=== PATIENT | female | born 1970 | race African-American/Black ===

== ENCOUNTER 2019-01-09 00:53 | Emergency (ER) | payer MEDICAID ==
[~2019-01-09] VITALS: Ht 152.4 cm; Wt 99.8 kg
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
[2019-01-09 01:00] VITALS: BP 136/86
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
--- NOTE | 2019-01-09 01:24 | NUR ---
ED Nurse Note: Pt down to CT and xray
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
--- NOTE | 2019-01-09 02:09 | NUR ---
ED Nurse Note: pt returned, currently in bed. VSS
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
[2019-01-09] MEDS ORDERED: IBUPROFEN600 MG ORAL (03:02)
[2019-01-09] MEDS ORDERED: CYCLOBENZAPRINE10 MG ORAL (03:02)
[2019-01-09 03:21] VITALS: BP 131/88
--- NOTE | 2019-01-09 03:21 | NUR ---
ER DISCHARGE NOTE: Patient is cleared to be discharged per ERMD, pt is aox4, on room air, with stable vital signs. pt was given dc and prescription instructions, pt was able to verbalize understanding, pt id band removed without complications. pt is able to ambulate using crutches. pt took all belongings.
--- NOTE | 2019-01-09 08:46 | Diagnostic Imaging Report ---
Indication: Pain status post injury Technique: XRAY Ankle Compl Min 3v R Comparison: None Findings: Bone mineralization within normal limits. No acute fractures identified. Ankle mortise intact on these nonstress views. There is a small plantar calcaneal enthesophyte. Otherwise imaged portions of the hindfoot unremarkable. No elbow joint effusion. No radiopaque foreign body. Impression: No acute fracture or dislocation.
--- NOTE | 2019-01-09 08:47 | Diagnostic Imaging Report ---
Indication: Right knee pain status post injury Technique: XRAY Knee Compl 4v+ R Comparison: None Findings: Bone mineralization within normal limits. There is no evidence of acute fracture or dislocation. There is no suprapatellar joint effusion. No radiopaque foreign body. Impression: No evidence of acute fracture or dislocation.
== END 2019-01-09 03:21 | disposition home or self-care (01) ==
LOC: EDUNIT# 00:53 → EDSEX 00:53 → EDBD 00:53 → EMR 01:26
DX: S90.01XA Contusion of right ankle, initial encounter (principal); S13.4XXA Sprain of ligaments of cervical spine, initial encounter; S80.01XA Contusion of right knee, initial encounter; V43.52XA Car driver injured in collision with other type car in traffic accident, initial encounter; Y92.410 Unspecified street and highway as the place of occurrence of the external cause; R51 Headache
CPT/HCPCS: 70450; 72125; 99284

== ENCOUNTER 2020-02-22 18:47 | Emergency (ER) | payer MEDICAID, OTHER ==
[~2020-02-22] VITALS: Ht 157.5 cm; Wt 115.7 kg
[~2020-02-22 18:47] MED LIST: CYCLOBENZAPRINE10 MG ORAL; IBUPROFEN600 MG ORAL
[2020-02-22 19:10] VITALS: BP 132/85
--- NOTE | 2020-02-22 19:10 | NUR ---
ED Nurse Note: Patient walked into ED for c/o pressure/burning like chest pain that has been intermittent for the last two weeks. She states that the pain radiates to her back and upper shoulders and that pain is worse with inspiration. Patient has hx of pericarditis and states symptoms are similiar to that. Patient denies n/v/d. She is aaox4, breathing is normal and unlabored. Patient placed in bed and connected to certified nurse practitioner. She is NSR on the certified nurse practitioner. Safety measures in place; will continue to monitor.
[2020-02-22] MEDS ORDERED: Dicyclomine HCl 10mg/5ml oral soln ORAL ONE (19:15)
[2020-02-22] MEDS ORDERED: Lidocaine 2% Visc 15ml soln ORAL ONE (19:15)
[2020-02-22] MEDS ORDERED: Mylanta II UD 30ml ORAL ONE (19:15)
[2020-02-22] MEDS ORDERED: Aspirin Baby 81mg ORAL ONE (19:15)
--- NOTE | 2020-02-22 19:20 | Emergency Room Report ---
History of Present Illness General Chief Complaint: Chest Pain Source: Patient Present Illness HPI 49-year-old female with remote history of pericarditis several years ago here with chest pain. Patient says that for the past 2 weeks she has had a sharp and pressure-like substernal chest pain that she says feels similar to her previous pericarditis symptoms. Says that the pain is worse when she lays back and feels relieved when she leans forward. Has not taken any medications for this. Also exacerbated by exertion. No fevers, chills, palpitations, back pain, abdominal pain, nausea, vomiting, diarrhea, dysuria. Allergies: Coded Allergies: PENICILLINS (Verified Allergy, Unknown, 02/22/20) COVID-19 Screening Contact w/high risk pt: No Experienced COVID-19 symptoms?: No COVID-19 Testing performed [employer]: No Patient History Last Menstrual Period: unk Now: No Nursing Documentation-[facility] Past Medical History: No History, Except For Hx Cardiac Problems: Yes - pericarditis, chf Review of Systems All Other Systems: negative except mentioned in HPI Physical Exam Vital Signs Date Time Temp Pulse Resp B/P (MAP) Pulse Ox O2 Delivery O2 Flow Rate FiO2 02/22/20 18:54 97.3 82 20 132/93 (106) 96 Room Air Sp02 EP Interpretation: reviewed, normal General Appearance: no apparent distress, alert, non-toxic Head: normocephalic, atraumatic Eyes: bilateral eye normal inspection, bilateral eye PERRL ENT: hearing grossly normal, normal pharynx, no angioedema, normal voice Neck: full range of motion, supple/symm/no masses Respiratory: chest non-tender, lungs clear, normal breath sounds, speaking full sentences Cardiovascular #1: regular rate, rhythm, no edema Cardiovascular #2: 2+ carotid (R), 2+ carotid (L), 2+ radial (R), 2+ radial (L), 2+ dorsalis pedis (R), 2+ dorsalis pedis (L) Gastrointestinal: normal bowel sounds, non tender, soft, non-distended, no guarding, no rebound Rectal: deferred Genitourinary: normal inspection, no CVA tenderness Musculoskeletal: back normal, normal range of motion, gait/station normal, non- tender Neurologic: alert, motor strength/tone normal, sensory intact, responsive, speech normal Psychiatric: judgement/insight normal, memory normal, mood/affect normal, no suicidal/homicidal ideation Lymphatic: no adenopathy Medical Decision Making Diagnostic Impression: Primary Impression: Chest pain Additional Impressions: Shortness of breath Abdominal pain ER Course Laboratory Tests Test 02/22/20 19:17 White Blood Count 10.5 K/UL (4.8-10.8) Red Blood Count 4.48 M/UL (4.20-5.40) Hemoglobin 12.5 G/DL (12.0-16.0) Hematocrit 39.4 % (37.0-47.0) Mean Corpuscular Volume 88 FL (80-99) Mean Corpuscular Hemoglobin 27.8 PG (27.0-31.0) Mean Corpuscular Hemoglobin Concent 31.7 G/DL (32.0-36.0) L Red Cell Distribution Width 14.0 % (11.6-14.8) Platelet Count 231 K/UL (150-450) Mean Platelet Volume 7.7 FL (6.5-10.1) Neutrophils (%) (Auto) 60.2 % (45.0-75.0) Lymphocytes (%) (Auto) 27.5 % (20.0-45.0) Monocytes (%) (Auto) 6.6 % (1.0-10.0) Eosinophils (%) (Auto) 4.6 % (0.0-3.0) H Basophils (%) (Auto) 1.1 % (0.0-2.0) Sodium Level 142 MMOL/L (136-145) Potassium Level 3.9 MMOL/L (3.5-5.1) Chloride Level 105 MMOL/L (98-107) Carbon Dioxide Level 28 MMOL/L (21-32) Anion Gap 9 mmol/L (5-15) Blood Urea Nitrogen 14 mg/dL (7-18) Creatinine 1.3 MG/DL (0.55-1.30) Estimated Glomerular Filtration Rate 53.0 mL/min (>60) Glucose Level 110 MG/DL (74-106) H Calcium Level 8.9 MG/DL (8.5-10.1) Total Bilirubin 0.3 MG/DL (0.2-1.0) Aspartate Amino Transferase (AST) 15 U/L (15-37) Alanine Aminotransferase (ALT) 15 U/L (12-78) Alkaline Phosphatase 75 U/L (46-116) Troponin I 0.000 ng/mL (0.000-0.056) Pro-B-Type Natriuretic Peptide 122 pg/mL (0-125) Total Protein 7.5 G/DL (6.4-8.2) Albumin 3.6 G/DL (3.4-5.0) Globulin 3.9 g/dL Albumin/Globulin Ratio 0.9 (1.0-2.7) L Lipase 114 U/L (73-393) CT angiography chest: No pulmonary embolism. No acute abnormality. Dilated fluid-filled esophagus placed the patient at risk for aspiration and could represent GERD or dysmotility Chest x-ray: Indication chest pain. No acute abnormalities. No cardiopulmonary process. No bony abnormalities 49-year-old female here with chest and upper abdominal discomfort. Patient was hemodynamically stable in the emergency department. She received aspirin and GI cocktail with good resolution of her pain. However about an hour later the patient's pain returned and she received IV morphine with good resolution. CBC and CMP were largely unremarkable. Troponin negative. Chest x-ray normal. CT angiography of the chest was also unremarkable. The patient however did show evidence of dilated esophagus on the CT angiography that could represent GERD or dysmotility. However the patient was tolerating p.o. throughout her stay in the emergency department. She was told that likely her symptoms are related to acid reflux and she needs to follow-up with a primary care physician. She was given a prescription for Maalox and Pepcid. Given strict return precautions to come back to the emergency department with any worsening chest pain, palpitations, shortness of breath, cough. She expressed understanding and was discharged. EKG: NSR, no ischemia, intervals WNL. No ectopy. 82 bpm Rhythm strip: patient monitored for arrhythmias - no malignant dysrhythmias, runs of PVCs, nor pauses noted Last Vital Signs Date Time Temp Pulse Resp B/P (MAP) Pulse Ox O2 Delivery O2 Flow Rate FiO2 02/22/20 18:54 97.3 82 20 132/93 (106) 96 Room Air Scripts Mag Hydrox/Al Hydrox/Simeth (MAALOX MAXIMUM STRENGTH SUSP) 355 Ml Oral.susp 355 ML PO DAILY, #500 ML Prov: Emmanuel Romo M.D. 02/22/20 Famotidine* (Pepcid 20mg tablet*) 20 Mg Tablet 20 MG ORAL DAILY, #30 TAB 0 Refills Prov: Emmanuel Romo M.D. 02/22/20 Emmanuel Romo M.D. Feb 22, 2020 19:20
[2020-02-22 19:35] LABS: BASOPHILS % (AUTO) 1.1 % (0.0-2.0); EOSINOPHILS % (AUTO) 4.6 % (0.0-3.0); HEMATOCRIT 39.4 % (37.0-47.0); HEMOGLOBIN 12.5 G/DL (12.0-16.0); LYMPHOCYTES % (AUTO) 27.5 % (20.0-45.0); MEAN CORPUSCULAR VOLUME 88 FL (80-99); MONOCYTES % (AUTO) 6.6 % (1.0-10.0); NEUTROPHILS % (AUTO) 60.2 % (45.0-75.0); PLATELET COUNT 231 K/UL (150-450); RED BLOOD COUNT 4.48 M/UL (4.20-5.40); WHITE BLOOD COUNT 10.5 K/UL (4.8-10.8)
[2020-02-22] MEDS ORDERED: Ketorolac 30mg Inj IV ONE (19:45)
[2020-02-22 19:49] LABS: CALCIUM 8.9 MG/DL (8.5-10.1); CREATININE 1.3 MG/DL (0.55-1.30); POTASSIUM 3.9 MMOL/L (3.5-5.1)
[2020-02-22 20:04] LABS: ALBUMIN 3.6 G/DL (3.4-5.0); ALBUMIN/GLOBULIN RATIO 0.9 (1.0-2.7); BILIRUBIN,TOTAL 0.3 MG/DL (0.2-1.0)
--- NOTE | 2020-02-22 20:20 | NUR ---
ED Nurse Note: ERMD bedside speaking with patient. Patient is still having 6/10 chest pain, worse with inspiration.
[2020-02-22] MEDS ORDERED: Morphine Sulfate 4mg/ml Inj (IV USE ONLY) IVP ONE (20:30)
[2020-02-22] MEDS ORDERED: Omnipaque 350 100ml vial INJ PRN (20:30)
--- NOTE | 2020-02-22 20:35 | NUR ---
ED Nurse Note: Patient taken to CT.
--- NOTE | 2020-02-22 21:25 | Diagnostic Imaging Report ---
EXAM: CT Angiography Chest With Intravenous Contrast CLINICAL HISTORY: CP TECHNIQUE: Axial computed tomographic angiography images of the chest with intravenous contrast. CTDI is 33.9 mGy and DLP is 470.4 mGy-cm. One or more of the following dose reduction techniques were used: automated exposure control, adjustment of the mA and/or kV according to patient size, use of iterative reconstruction technique. MIP reconstructed images were created and reviewed. Coronal and sagittal reformatted images were created and reviewed. COMPARISON: Same-day chest radiograph. FINDINGS: Pulmonary arteries: No pulmonary embolism. Aorta: No acute findings. No thoracic aortic aneurysm. Lungs: Unremarkable. No mass. No consolidation. Pleural space: Unremarkable. No significant effusion. No pneumothorax. Heart: Unremarkable. No cardiomegaly. No significant pericardial effusion. No evidence of RV dysfunction. Mediastinum: Dilated fluid-filled esophagus place the patient risk for aspiration and could represent GERD or dysmotility. Bones/joints: No acute fracture. No dislocation. Soft tissues: Unremarkable. Lymph nodes: Unremarkable. No enlarged lymph nodes. IMPRESSION: 1. No pulmonary embolism. 2. No acute abnormality definitively identified to account for patient presentation. 3. Dilated fluid-filled esophagus place the patient risk for aspiration and could represent GERD or dysmotility.
--- NOTE | 2020-02-22 21:30 | NUR ---
ED Nurse Note: Patient is resting in bed, NAD. She reports decreased pain. MD bedside.
[2020-02-22] MEDS ORDERED: FAMOTIDINE20 MG ORAL (21:43)
[2020-02-22] MEDS ORDERED: MAALOX MAXIMUM355 M1 PO (21:43)
--- NOTE | 2020-02-22 22:00 | NUR ---
ED Nurse Note: ERMD ok with not obtaining urine sample.
[2020-02-22 22:05] VITALS: BP 125/82
--- NOTE | 2020-02-22 22:05 | NUR ---
ER DISCHARGE NOTE: Patient is cleared to be discharged per ERMD, pt is aox4, on room air, with stable vital signs. pt was given dc and prescription instructions, pt was able to verbalize understanding, pt id band and iv site removed without complications. pt is able to ambulate with steady gait. pt took all belongings.
--- NOTE | 2020-02-23 11:16 | Diagnostic Imaging Report ---
Indication: Chest pain Technique: One view of the chest Comparison: none Findings: Lungs and pleural spaces are clear. Heart size is normal. Impression: No acute process
--- NOTE | 2020-02-23 17:41 | Cardiology Report ---
APPROVED REPORT EKG Measurement Heart [id number] <Conclusion> Normal sinus rhythm with sinus arrhythmia Normal ECG
== END 2020-02-22 22:05 | disposition home or self-care (01) ==
LOC: EMR 19:20
DX: R07.9 Chest pain, unspecified (principal); R06.02 Shortness of breath; R10.9 Unspecified abdominal pain; Z88.0 Allergy status to penicillin; I50.9 Heart failure, unspecified
CPT/HCPCS: 36415; 71045; 71275; 80053; 83690; 83880; 84484; 85025; 93005; 96374; 96375; J1885; J2270; Q9967; Z7502; 99284